=== PATIENT | male | born 1955 | race Caucasian/White ===

== ENCOUNTER 2016-05-01 11:01 | Emergency (ER) | payer OTHER, MEDICAID ==
[~2016-05-01] VITALS: Ht 165.1 cm; Wt 65.8 kg
[2016-05-01 11:19] VITALS: BP 193/110
--- NOTE | 2016-05-01 11:20 | NUR ---
PATIENT PRESENTS TO ED WITH HIGH BLOOD PRESSURE . PT STATES HE TOOK CLONIDIDE BEFORE COMING TO THE ED . DENIES N/V/D; SKIN IS PINK/WARM/DRY; AAOX4 WITH EVEN AND STEADY GAIT; LUNGS CLEAR BL; HR EVEN AND REGULAR; PT DENIES ANY FEVER, CP, SOB, OR COUGH AT THIS TIME; PATIENT STATES PAIN OF 0/10 AT THIS TIME; VSS; PATIENT POSITIONED FOR COMFORT; HOB ELEVATED; BEDRAILS UP X2; BED DOWN. ER MD MADE AWARE OF PT STATUS.
[2016-05-01] MEDS ORDERED: CATAPRES0.2 M1 (11:24)
--- NOTE | 2016-05-01 11:28 | NUR ---
DOCTOR EVALUATING PATIENT AT BEDSIDE
[2016-05-01] MEDS ORDERED: hydrALAZINE 20 MG/ML VIAL IM ONE (11:40)
[2016-05-01] MEDS ORDERED: cloNIDine 0.1 MG TAB PO ONE ×2 (12:35→13:05)
[2016-05-01] MEDS ORDERED: NITROGLYCERIN 6.5 MG PO SCH (14:00)
[2016-05-01] MEDS ORDERED: ACETAMINOPHEN EXTRA STRENGTH 500 MG TAB PO ONE (14:00)
--- NOTE | 2016-05-01 14:46 | NUR ---
Patient discharged with v/s stable. Written and verbal after care instructions given and explained. Patient verbalized understanding. Ambulatory with steady gait. All questions addressed prior to discharge. Advised to follow up with PMD.
[2016-05-01 14:47] VITALS: BP 177/81
== END 2016-05-01 14:46 | disposition home or self-care (01) ==
LOC: MED 11:01
DX: I12.0 Hypertensive chronic kidney disease with stage 5 chronic kidney disease or end stage renal disease (principal); N18.6 End stage renal disease; Z99.2 Dependence on renal dialysis
CPT/HCPCS: 96372; 99284; J0360